=== PATIENT | male | born 1960 | race Asian ===

== ENCOUNTER 2024-03-22 05:54 | Day surgery (SDC) | payer OTHER ==
[~2024-03-22] VITALS: Ht 177.8 cm; Wt 72.7 kg
[~2024-03-22 05:54] MED LIST: CHOL25TA4 PO; CYCLOPENTOLATE HCL 1% 2 ML OPHTHALMIC SOLUTION ONE; KETOROLAC TROMETHAMINE 0.5% 5 ML OPHTHALMIC SOLUTION ONE; LOSA1TAB42 PO; MOXIFLOXACIN HCL 0.5% 3 ML OPHTHALMIC SOLUTION ONE; PHENYLEPHRINE HCL 2.5% 2 ML OPHTHALMIC SOLUTION ONE; RINGERS SOLUTION,LACTATED 500 ML IV ONE; SIMV10TA97 PO; TETRACAINE HCL/PF 0.5% 4 ML OPHTHALMIC SOLUTION ONE; TROPICAMIDE 1% 2 ML OPHTHALMIC SOLUTION ONE
[2024-03-22] MEDS: RINGERS SOLUTION,LACTATED 500 ML IV ONE (06:39)
[2024-03-22] MEDS: TETRACAINE HCL/PF 0.5% 4 ML OPHTHALMIC SOLUTION OD ONE ×2 (06:39→08:26)
[2024-03-22] MEDS: CYCLOPENTOLATE HCL 1% 2 ML OPHTHALMIC SOLUTION OD SCH (06:40)
[2024-03-22] MEDS: MOXIFLOXACIN HCL 0.5% 3 ML OPHTHALMIC SOLUTION OD SCH (06:40)
[2024-03-22] MEDS: PHENYLEPHRINE HCL 2.5% 2 ML OPHTHALMIC SOLUTION OD SCH (06:40)
[2024-03-22] MEDS: TROPICAMIDE 1% 2 ML OPHTHALMIC SOLUTION OD SCH (06:40)
[2024-03-22] MEDS: KETOROLAC TROMETHAMINE 0.5% 5 ML OPHTHALMIC SOLUTION OD SCH (06:40)
[2024-03-22] MEDS: TETRACAINE HCL/PF 0.5% 4 ML OPHTHALMIC SOLUTION OD SCH (06:45)
[2024-03-22] MEDS ORDERED: PROPARACAINE HCL 0.5% 15 ML OPHTHALMIC SOLUTION ONE (08:05)
[2024-03-22] MEDS ORDERED: LIDOCAINE/PF 1% 2 ML VIAL ONE (08:15)
[2024-03-22] MEDS: BALANCED SALT 15 ML OPHTHALMIC IRRIG.SOLN OD ONE (08:20)
[2024-03-22] MEDS: NEOMYCIN/POLYMYXIN B/DEXAMETH 3.5 GM OPHTHALMIC OINTMENT ONE (08:22)
[2024-03-22] MEDS: EPINEPHrine 1:1,000 [1 MG/ML] VIAL ONE (08:25)
[2024-03-22] MEDS: NEOMYCIN/POLYMYXIN B/DEXAMETH 3.5 GM OPHTHALMIC OINTMENT OD ONE (08:26)
[2024-03-22] MEDS: LIDOCAINE/PF 1% 2 ML VIAL ONE (08:26)
[2024-03-22] MEDS: POVIDONE-IODINE 5% 30 ML OPHTHALMIC SOLUTION ONE (08:26)
[2024-03-22] MEDS ORDERED: PrednisoLONE ACETATE 1% 5 ML OPHTHALMIC SUSPENSION ONE (08:31)
[2024-03-22] MEDS ORDERED: MIDAZOLAM HCL 2 MG/2 ML VIAL IVP ONE (12:00)
[2024-03-22] MEDS ORDERED: FentaNYL CITRATE PF 100 MCG/2 ML VIAL IVP ONE (12:00)
== END 2024-03-22 10:00 | disposition home or self-care (01) ==
LOC: SURGERY 05:54
PROVIDERS: ATTEND Ophthalmology
DX: H25.11 Age-related nuclear cataract, right eye (principal); I10 Essential (primary) hypertension; E78.00 Pure hypercholesterolemia, unspecified; Z98.49 Cataract extraction status, unspecified eye; Z98.890 Other specified postprocedural states; Z79.899 Other long term (current) drug therapy
CPT/HCPCS: 93005; 66984; J0171; J3010; J3490; J2250; J7120; V2632